=== PATIENT | female | born 1945 | race Caucasian/White ===

== ENCOUNTER → 2021-06-20 | Day surgery (SDC) | payer MEDICARE, OTHER ==
[~2021-06-20] VITALS: Ht 157.5 cm; Wt 114.3 kg
[~2021-06-20] MED LIST: ALLOPURINOL 10100 MG PO; AMLODIPINE BESY10 MG PO; ASCORBIC ACID500 MG PO; ASPIRIN EC81 M1 PO; ATORVASTATIN CA40 MG PO; BUMEX1 MG PO; CARDURA2 MG PO; CENTRUM ADULTS1 EACH PO; COREG 6.25MG6.25 MG PO; COZAAR100 MG PO; FEROSUL325 MG PO; FEXOFENADINE H180 MG PO; FLEXERIL5 MG PO; LOVAZA1 GM PO; METFORMIN HCL500 M3 PO; MONTELUKAST SOD10 MG PO; PERCOCET 5-3251 EACH PO; PREDNISONE 20MG20 MG PO; PROBENECID500 MG PO; SPIRONOLACTONE25 M1 PO; SYNTHROID25 MC1 PO; VITAMIN D325 MC1 PO
[2021-06-20 09:47] LABS: HCT 41.2 % (37.0-47.0); HGB 13.6 g/dl (12.5-16.0); MCH 31.9 pg (25.0-31.0); MCV 96.7 fL (78.0-100.0); MPV 10.1 fL (6.0-9.5); RBC 4.26 M/uL (4.20-5.40); RDW 13.5 % (11.5-14.0); WBC 9.6 K/uL (4.0-10.5)
[2021-06-20 10:05] LABS: BUN/CREAT RATIO (CALC) 19.3 RATIO; CREATININE 1.35 mg/dL (0.51-0.95); POTASSIUM 4.5 mmol/L (3.5-5.1)
== END | disposition home or self-care (01) ==
LOC: FAS 08:01
PROVIDERS: Obstetrics & Gynecology
DX: N90.7 Vulvar cyst (principal); C50.919 Malignant neoplasm of unspecified site of unspecified female breast; R94.31 Abnormal electrocardiogram [ECG] [EKG]; E66.9 Obesity, unspecified; E11.9 Type 2 diabetes mellitus without complications; E78.5 Hyperlipidemia, unspecified; Z88.5 Allergy status to narcotic agent; Z88.7 Allergy status to serum and vaccine; Z91.012 Allergy to eggs; Z79.82 Long term (current) use of aspirin; Z79.84 Long term (current) use of oral hypoglycemic drugs; Z96.659 Presence of unspecified artificial knee joint; Z68.42 Body mass index [BMI] 45.0-49.9, adult; Z91.041 Radiographic dye allergy status
CPT/HCPCS: 36415; 80048; 86850; 86900; 86901; 93005; J2001; J2250; J2405; J2704; J3010; J7120

== ENCOUNTER 2021-09-28 10:12 | Emergency (ER) | payer MEDICARE, OTHER ==
[2021-09-28 11:13] LABS: BASOPHIL 0.5 % (0-2); EOSINOPHIL 2.4 % (0-7); HCT 41.2 % (37.0-47.0); LYMPHOCYTE 23.3 % (15-48); MCV 94.1 fL (78.0-100.0); MONOCYTE 9.3 % (0-12); MPV 10.2 fL (6.0-9.5); NEUTROPHIL 64.1 % (41-80); NRBC 0; PLT 318 K/uL (150-400); RBC 4.38 M/uL (4.20-5.40); RDW 13.6 % (11.5-14.0); WBC 10.8 K/uL (4.0-10.5)
[2021-09-28 11:18] LABS: BILIRUBIN - TOTAL 0.7 mg/dL (0.2-1.0); BUN/CREAT RATIO (CALC) 21.1 RATIO; CREATININE 1.71 mg/dL (0.51-0.95); GLOBULIN (CALCULATION) 4.6 g/dL; POTASSIUM 4.5 mmol/L (3.5-5.1); TOTAL PROTEIN 8.6 g/dL (6.4-8.2)
[2021-09-28 11:55] LABS: BILIRUBIN NEGATIVE (NEGATIVE); BLOOD NEGATIVE Ery/uL (NEGATIVE); CLARITY CLEAR (CLEAR); COLOR YELLOW (YELLOW); GLUCOSE (U) TRACE mg/dL (NORMAL); LEUKOCYTES NEGATIVE Leu/uL (NEGATIVE); NITRITE NEGATIVE (NEGATIVE); PROTEIN NEGATIVE (NEGATIVE); SPECIFIC GRAVITY 1.015 (1.001-1.030); UROBILINOGEN 0.2 mg/dL (0.2-1.0)
[2021-09-28] MEDS ORDERED: TRAMADOL HCL50 MG PO (13:21)
== END 2021-09-28 15:08 | disposition home or self-care (01) ==
LOC: FER 10:12
PROVIDERS: Emergency Medicine
DX: R10.9 Unspecified abdominal pain (principal); Z88.6 Allergy status to analgesic agent; Z88.5 Allergy status to narcotic agent; Z91.041 Radiographic dye allergy status; Z28.310 Unvaccinated for COVID-19
CPT/HCPCS: 36415; 80053; 81003; 83690; 84145; 84484; 85025; 85379; 93005; J1170; J2405; J7030

== ENCOUNTER 2021-10-02 18:16 | Emergency (ER) | payer MEDICARE, OTHER ==
[~2021-10-02 18:16] MED LIST changes: +TRAMADOL HCL50 MG PO
== END 2021-10-02 22:35 | disposition home or self-care (01) ==
LOC: FER 18:16
DX: K59.00 Constipation, unspecified (principal); I10 Essential (primary) hypertension; Z88.5 Allergy status to narcotic agent; Z88.6 Allergy status to analgesic agent
CPT/HCPCS: 99283